=== PATIENT | female | born 1975 | race Caucasian/White ===

== ENCOUNTER 2021-07-23 16:28 | Emergency (ER) | payer OTHER ==
[2021-07-23 16:45] VITALS: BP 137/98; PULSE 92; TEMP 99.2; BMI 21.4
[2021-07-23] MEDS ORDERED: IBUPROFEN 600 MG TABLET (FP) PO ONE ×2 (16:47→16:51)
== END 2021-07-23 17:26 | disposition home or self-care (01) ==
LOC: FER 16:28
DX: M54.2 Cervicalgia (principal); M54.50 Low back pain, unspecified; V49.40XA Driver injured in collision with unspecified motor vehicles in traffic accident, initial encounter
CPT/HCPCS: 99283-25

== ENCOUNTER 2022-04-11 15:05 | Emergency (ER) | payer OTHER ==
[2022-04-11] MEDS ORDERED: METHOCARBAMOL 500 MG TABLET PO ONE (15:15)
[2022-04-11 15:22] VITALS: BP 148/93; PULSE 80; RESP 16; TEMP 98.2; BMI 20.5
[2022-04-11] MEDS ORDERED: METHOCARBAMOL 500 MG TABLET ONE (15:22)
== END 2022-04-11 15:30 | disposition home or self-care (01) ==
LOC: FER 15:05
DX: M25.461 Effusion, right knee (principal)
CPT/HCPCS: 99283-25